=== PATIENT | male | born 1955 | race Caucasian/White ===

== ENCOUNTER 2016-12-08 07:55 | Day surgery (SDC) | payer OTHER ==
[~2016-12-08] VITALS: Ht 175.3 cm; Wt 85.0 kg
[~2016-12-08 07:55] MED LIST: 0.9% Sodium Chloride 1,000 ML IV PRN; ASPI-973 PO; CHOL5000 PO; NIACINAMIDE ORAL; Sodium Chloride LOK Flush 10 mL Syringe IV PRN; VITA1CAP16 PO; fentaNYL-PF 50 mCg/mL 2 mL Inj IVPUSH PRN
[2016-12-08 08:26] VITALS: BP 136/77; PULSE 65; RESP 14; O2SAT 98
--- NOTE | 2016-12-08 10:05 | PCM.ENDCOL ---
Colonoscopy Date of Service: Dec 08, 2016 Physician Ventura Alvarez MD Pre Procedure Diagnosis: Screening for colon cancer Post Procedure Dx & Findings: Polyps hemorrhoid diverticuli Procedure Colonoscopy A fair Withdrawal 20 minutes PROCEDURE IN DETAIL: After unremarkable rectal examination Olympus video colonoscope was inserted into patient's anal canal was advanced to cecum. Landmarks are identified including the ileocecal valve and appendiceal orifice. Scope was withdrawn systematically. The mucosa of the cecum, ascending, transverse, descending, sigmoid, rectal mucosa lined with whitish, pink, smooth, glistening, normal-appearing mucosa, normal fine branching, underlying vascularity, normal haustra. The patient tolerated procedure and was transported to observation area. In the cecum, there were 2 polyps 3 mm and 5 mm. These were removed completely using cold snare. In the ascending colon, there was a 1 cm polyp which was removed completely using hot snare. After removal, there was a visible vessel was oozing blood. 4 hemostatic clips deployed. Complete hemostasis achieved. In the transverse colon, there were two1 mm polyps which were removed completely using cold forcep. In the transverse colon, there was a 2 mm polyp which was removed completely using cold snare. In the descending colon there was another 1 cm polyp removed which was removed completely using hot snare. In the colon, multiple diverticuli noted in the sigmoid colon and diverticuli was also found up to the ascending colon in an isolated fashion. In the rectum retroflexion was done which showed hemorrhoids anal canal was inspected carefully on the way out and hemorrhoids noted. Impression Polyps 7 status post complete removal Hemorrhoids Diverticuli Fair prep Recommendation Repeat colonoscopy 1 year with 2 days of clears. Diverticular diet Presedation Assessment Risks and Benefits Informed consent was obtained from the patient after all risks and benefits including but not limited to drug reaction, infection, pain, bleeding, perforation, as well as alternatives were discussed. Patient monitoring Continuous pulse oximetry, cardiac monitoring, blood pressure monitoring, IV access, and oxygen at 2L per nasal cannula. Complications There were no periprocedural complications identified. Post Procedure Plan Post Procedure Recommendations 1. Restrict activities today. 2. Resume normal activities in the morning. 3. Resume medications. 4. Patient informed of normal post procedure side effects as bloating, drowsiness, blood streaking in the stool. 5. average risk CRCS. If colon polyps come back as: -Hyperplastic- can repeat colonoscopy in 10 years -Tubular adenoma- repeat colonoscopy in 5 years -Tubulovillous/villous adenoma- repeat colonoscopy in 3 years -If any dysplasia- return to clinic as soon as possible 6. Please don't hesitate to call me with any questions. Ventura Alvarez MD Dec 08, 2016 10:05
[2016-12-08 10:07] VITALS: BP 123/68; PULSE 60; RESP 16; O2SAT 100
--- NOTE | 2016-12-09 11:04 | PATH ---
SURGICAL PATHOLOGY Attending Physician:Ventura Alvarez M.D. CASE STATUS: Signed Out PATIENT NAME: KATERIN JOYA PID: [id number] : 1955 DATE COLLECTED:12/08/2016 17:24 SPECIMEN: 1: Colon, Biopsy 2: Colon, Biopsy 3: Colon, Biopsy 4: Colon, Biopsy CLINICAL HISTORY: 1.TRANSVERSE POLYP 2.CECAL POLYP 3.ASCENDING POLYP 4.DESCENDING POLYP FINAL DIAGNOSIS: 1.TRANSVERSE COLON POLYP: TUBULAR ADENOMA INVOLVING FOUR BIOPSY FRAGMENTS. 2.CECAL POLYP: TUBULAR ADENOMA INVOLVING BOTH BIOPSY FRAGMENTS. 3.ASCENDING COLON POLYP: TUBULAR ADENOMA INVOLVING BOTH BIOPSY FRAGMENTS. 4.DESCENDING COLON POLYP: TUBULAR ADENOMA. ICD10 CODE D12.3 GROSS DESCRIPTION: The specimen is received in four formalin filled containers labeled with the patient's name. 1). The specimen is sublabeled "transverse polyp" and consists of 5 portions of tissue which aggregate to 0.4 x 0.4 x 0.2 CM. The specimen is entirely submitted in cassette 1A. 2). The specimen is sublabeled "cecal polyps" and consists of 2 portions of tissue which aggregate to 0.4 x 0.4 x 0.3 CM. The specimen is entirely submitted in cassette 2A. 3). The specimen is sublabeled "ascending polyp" and consists of 2 portions of tissue which aggregate to 0.2 x 0.2 x 0.2 CM. The specimen is entirely submitted in cassette 3A. 4). The specimen is sublabeled "descending polyp" and consists of a 0.2 x 0.2 x 0.1 CM portion of tissue which is entirely submitted in cassette 4A. 12/08/2016 DAC MICRO DESCRIPTION: See diagnosis. ICD-9 CODES: CPT CODES: 1: 01097 2: 10876 3: 37011 4: 71906 Electronically Signed Out Cody Linares MD [facility] [place] [address] Technical component performed at [facility], [facility] [address], [address]
== END 2016-12-08 23:59 | disposition home or self-care (01) ==
LOC: END 07:55
PROVIDERS: ATTEND Internal Medicine
DX: Z12.11 Encounter for screening for malignant neoplasm of colon (principal); D12.0 Benign neoplasm of cecum; D12.2 Benign neoplasm of ascending colon; D12.3 Benign neoplasm of transverse colon; D12.4 Benign neoplasm of descending colon; K64.8 Other hemorrhoids; K57.30 Diverticulosis of large intestine without perforation or abscess without bleeding; Z83.71 Family history of colonic polyps; J45.909 Unspecified asthma, uncomplicated; K76.9 Liver disease, unspecified; Z79.82 Long term (current) use of aspirin; Z87.891 Personal history of nicotine dependence
CPT/HCPCS: 45380; 45385; J7030